=== PATIENT | male | born 1990 | race Caucasian/White ===

== ENCOUNTER 2016-09-06 18:14 | Emergency (ER) | payer MEDICAID ==
[~2016-09-06] VITALS: Ht 180.3 cm; Wt 86.2 kg
[2016-09-06] MEDS ORDERED: RITALIN20 MG PO (18:51)
[2016-09-06] MEDS ORDERED: PROVENTIL HFA6.7 GM INH (18:52)
== END 2016-09-06 18:45 | disposition short-term general hospital (02) ==
LOC: ER 18:14
DX: J06.9 Acute upper respiratory infection, unspecified (principal); H10.9 Unspecified conjunctivitis; F90.9 Attention-deficit hyperactivity disorder, unspecified type; J45.909 Unspecified asthma, uncomplicated; F17.210 Nicotine dependence, cigarettes, uncomplicated; Z79.899 Other long term (current) drug therapy